=== PATIENT | male | born 1970 | race Caucasian/White ===

== ENCOUNTER 2018-03-31 20:55 | Emergency (ER) | payer OTHER ==
[~2018-03-31] VITALS: Ht 182.9 cm; Wt 77.1 kg
[2018-03-31 21:09] VITALS: BP 152/87
[2018-03-31] MEDS ORDERED: IBUPROFEN 200200 M1 PO (21:14)
== END 2018-03-31 21:49 | disposition home or self-care (01) ==
LOC: EDBD 20:55 → ER 20:55
DX: S50.11XA Contusion of right forearm, initial encounter (principal); X58.XXXA Exposure to other specified factors, initial encounter; Y93.89 Activity, other specified; Y92.89 Other specified places as the place of occurrence of the external cause; Y99.8 Other external cause status